=== PATIENT | male | born 1985 | race Caucasian/White ===

== ENCOUNTER 2019-03-07 14:56 | Day surgery (SDC) | payer BC ==
[2019-03-07] MEDS ORDERED: Sodium Chloride 0.9% 1,000 ML IV ONE ×2 (15:13→16:27)
[2019-03-07] MEDS ORDERED: Sodium Chloride 0.9% 10 ML Syringe FLUSH PRN (15:13)
[2019-03-07] MEDS ORDERED: Sodium Chloride 0.9% 2.5 ML Syringe FLUSH PRN (15:13)
[2019-03-07] MEDS ORDERED: Ondansetron 4 MG Tab.DIS PO ONE (15:18)
[2019-03-07] MEDS ORDERED: Morphine 10 MG/ML Syringe IM ONE (15:18)
--- NOTE | 2019-03-07 15:18 | EDM.PDOC ---
ED HPI GENERAL MEDICAL PROBLEM - General Chief Complaint: Abdominal Pain Stated Complaint: RIGHT ABD PAIN Time Seen by Provider: 03/07/19 15:12 Source of Information: Reports: Patient History Limitations: Reports: No Limitations - History of Present Illness INITIAL COMMENTS - FREE TEXT/NARRATIVE: History of present illness: []Patient presents with right lower quadrant pain that is intermittent, sharp and stabbing that began about an hour and a half ago. He was at a restaurant eating lunch with his family and ate about half a taco when it began. He denies any back pain or blood in his urine is no radiation of pain to his testicles. She has had no previous surgeries and has not had this pain in the past. Review of systems: As per history of present illness and below otherwise all systems reviewed and negative. Past medical history: As per history of present illness and as reviewed below otherwise noncontributory. Surgical history: As per history of present illness and as reviewed below otherwise noncontributory. Social history: No reported history of drug or alcohol abuse. Family history: As per history of present illness and as reviewed below otherwise noncontributory. Physical exam: General: Well developed, well nourished in NAD HEENT: Atraumatic, normocephalic, pupils reactive, negative for conjunctival pallor or scleral icterus, mucous membranes moist, throat clear, neck supple, nontender, trachea midline. Lungs: Clear to auscultation, breath sounds equal bilaterally, chest nontender. Heart: S1S2, regular, negative for clicks, rubs, or JVD. Abdomen: NABS, Soft, nondistended, tender in right lower quadrant without guarding or rebound. Negative for masses or hepatosplenomegaly. Negative for costovertebral tenderness. Pelvis: Stable nontender. Genitourinary: Deferred. Rectal: Deferred. Extremities: Atraumatic, negative for cords or calf pain. Neurovascular unremarkable. Neuro: Awake, alert, oriented. Cranial nerves II through XII unremarkable. Cerebellum unremarkable. Motor and sensory unremarkable throughout. Exam nonfocal. Skin:warm and dry Diagnostics: CBC, chemistry, lipase, UA, CT abdomen and pelvis showing early acute appendicitis Therapeutics: IV hydration, morphine, Zofran and Zosyn. ED Course: Stable Dr. Olivo consulted and will be taking this patient to the OR Impression: Acute appendicitis, uncontrolled hypertension Prescriptions: none Plan: Admit today surgery Definitive disposition and diagnosis as appropriate pending reevaluation and review of above. Right Lower Abdomen Pain Score (Numeric/FACES): 9 - Related Data Allergies Allergy/AdvReac Type Severity Reaction Status Date / Time No Known Allergies Allergy Verified 03/07/19 15:05 Home Meds: Home Meds Lisinopril 40 mg PO DAILY 03/07/19 [History] Pantoprazole Sodium [Protonix] 40 mg PO DAILY 03/07/19 [History] Past Medical History Cardiovascular History: Reports: Hypertension Gastrointestinal History: Reports: Gastritis - Infectious Disease History Infectious Disease History: Reports: None Social & Family History - Family History Family Medical History: Noncontributory - Tobacco Use Smoking Status *Q: Former Smoker Used Tobacco, but Quit: Yes Month/Year Tobacco Last Used: 2018 - Recreational Drug Use Recreational Drug Use: No ED ROS GENERAL - Review of Systems Review Of Systems: See Below ED EXAM, GI/ABD - Physical Exam Exam: See Below (See history of present illness) Course - Vital Signs Last Recorded V/S: Last Vital Signs Temp 98.4 F 03/07/19 15:05 Pulse 78 03/07/19 17:54 Resp 16 03/07/19 17:54 BP 174/113 H 03/07/19 17:54 Pulse Ox 96 03/07/19 17:54 - Orders/Labs/Meds Orders: Active Orders 24 hr Category Date Time Status NPO [Nothing Per Oral Diet] [DIET] Diet 03/07/19 Dinner Active HYDROmorphone [Dilaudid] Med 03/07/19 18:30 Active 1 mg IVPUSH ASDIRECTED PRN Lactated Ringers [Ringers, Lactated] 1,000 ml Med 03/07/19 17:41 Active IV .BOLUS Sodium Chloride 0.9% [Saline Flush] Med 03/07/19 15:13 Active 10 ml FLUSH ASDIRECTED PRN Sodium Chloride 0.9% [Saline Flush] Med 03/07/19 15:13 Active 2.5 ml FLUSH ASDIRECTED PRN Saline Lock Insert [OM.PC] Stat Oth 03/07/19 15:12 Ordered Medication Orders Hydromorphone HCl (Dilaudid) 1 mg IVPUSH ASDIRECTED PRN PRN Reason: Pain Last Admin: 03/07/19 18:38 Dose: 1 mg Lactated Ringer's (Ringers, Lactated) 1,000 mls @ 999 mls/hr IV .BOLUS ONE Stop: 03/07/19 18:41 Last Admin: 03/07/19 17:47 Dose: 999 mls/hr Sodium Chloride (Saline Flush) 10 ml FLUSH ASDIRECTED PRN PRN Reason: Keep Vein Open Sodium Chloride (Saline Flush) 2.5 ml FLUSH ASDIRECTED PRN PRN Reason: Keep Vein Open Labs: Laboratory Tests 03/07/19 03/07/19 03/07/19 Range/Units 15:15 15:25 15:25 WBC 13.11 H (4.0-11.0) K/uL RBC 5.14 (4.50-5.90) M/uL Hgb 15.3 (13.0-17.0) g/dL Hct 45.2 (38.0-50.0) % MCV 87.9 (80.0-98.0) fL MCH 29.8 (27.0-32.0) pg MCHC 33.8 (31.0-37.0) g/dL RDW Std Deviation 40.8 (28.0-62.0) fl RDW Coeff of Heidi 13 (11.0-15.0) % Plt Count 221 (150-400) K/uL MPV 10.10 (7.40-12.00) fL Neut % (Auto) 75.0 (48.0-80.0) % Lymph % (Auto) 17.7 (16.0-40.0) % [place] % (Auto) 5.8 (0.0-15.0) % Eos % (Auto) 1.3 (0.0-7.0) % Baso % (Auto) 0.2 (0.0-1.5) % Neut # (Auto) 9.8 H (1.4-5.7) K/uL Lymph # (Auto) 2.3 (0.6-2.4) K/uL [place] # (Auto) 0.8 (0.0-0.8) K/uL Eos # (Auto) 0.2 (0.0-0.7) K/uL Baso # (Auto) 0.0 (0.0-0.1) K/uL Nucleated RBC % 0.0 /100WBC Nucleated RBCs # 0 K/uL Sodium 139 (136-148) mmol/L Potassium 4.0 (3.5-5.1) mmol/L Chloride 104 (98-107) mmol/L Carbon Dioxide 27.1 (21.0-32.0) mmol/L BUN 14 (7.0-18.0) mg/dL Creatinine 1.2 (0.8-1.3) mg/dL Est Cr Clr Drug Dosing 96.18 mL/min Estimated GFR (MDRD) > 60.0 ml/min Glucose 126 H (74-106) mg/dL Calcium 9.2 (8.5-10.1) mg/dL Total Bilirubin 0.4 (0.2-1.0) mg/dL AST 15 (15-37) IU/L ALT 22 (14-63) IU/L Alkaline Phosphatase 146 H (46-116) U/L Total Protein 6.9 (6.4-8.2) g/dL Albumin 3.5 (3.4-5.0) g/dL Globulin 3.4 (2.6-4.0) g/dL Albumin/Globulin Ratio 1.0 (0.9-1.6) Lipase 118 (73-393) U/L Urine Color YELLOW Urine Appearance CLEAR Urine pH 5.5 (5.0-8.0) Ur Specific [place] >= 1.030 (1.001-1.035) Urine Protein NEGATIVE (NEGATIVE) mg/dL Urine Glucose (UA) NEGATIVE (NEGATIVE) mg/dL Urine Ketones NEGATIVE (NEGATIVE) mg/dL Urine Occult Blood TRACE-INTACT H (NEGATIVE) Urine Nitrite NEGATIVE (NEGATIVE) Urine Bilirubin NEGATIVE (NEGATIVE) Urine Urobilinogen 0.2 (<2.0) EU/dL Ur Leukocyte Esterase NEGATIVE (NEGATIVE) Urine RBC 0-2 (0-2/HPF) Urine WBC 0-2 (0-5/HPF) Ur Epithelial Cells OCCASIONAL (NONE-FEW) Urine Bacteria RARE (NEGATIVE) Urine Mucus LIGHT (NONE-MOD) Meds: Medications Generic Name Dose Route Start Last Admin Trade Name Freq PRN Reason Stop Dose Admin Hydromorphone HCl 1 mg 03/07/19 18:30 03/07/19 18:38 Dilaudid IVPUSH 1 mg ASDIRECTED PRN Administration Pain Lactated Ringer's 1,000 mls @ 999 mls/hr 03/07/19 17:41 03/07/19 17:47 Ringers, Lactated IV 03/07/19 18:41 999 mls/hr .BOLUS ONE Administration Sodium Chloride 10 ml 03/07/19 15:13 Saline Flush FLUSH ASDIRECTED PRN Keep Vein Open Sodium Chloride 2.5 ml 03/07/19 15:13 Saline Flush FLUSH ASDIRECTED PRN Keep Vein Open Discontinued Medications Generic Name Dose Route Start Last Admin Trade Name Freq PRN Reason Stop Dose Admin Hydromorphone HCl 1 mg 03/07/19 16:26 03/07/19 16:31 Dilaudid IVPUSH 03/07/19 16:27 1 mg ONETIME ONE Administration Hydromorphone HCl 0.5 mg 03/07/19 17:41 03/07/19 17:48 Dilaudid IVPUSH 03/07/19 17:42 0.5 mg ONETIME ONE Administration Sodium Chloride 1,000 mls @ 999 mls/hr 03/07/19 15:13 03/07/19 15:35 Normal Saline IV 03/07/19 16:13 999 mls/hr .Bolus ONE Administration Sodium Chloride 1,000 mls @ 999 mls/hr 03/07/19 16:27 03/07/19 17:53 Normal Saline IV 03/07/19 17:27 Not Given .Bolus ONE Piperacillin Sod/Tazobactam 50 mls @ 100 mls/hr 03/07/19 17:40 03/07/19 17:48 Sod 3.375 gm/ Sodium Chloride IV 03/07/19 18:09 100 mls/hr ONETIME ONE Administration Iopamidol 100 ml 03/07/19 17:45 03/07/19 17:46 Isovue-370 (76%) IVPUSH 03/07/19 17:46 100 ml ONETIME STA Administration Morphine Sulfate 6 mg 03/07/19 15:20 03/07/19 15:35 Morphine IVPUSH 03/07/19 15:21 6 mg ONETIME ONE Administration Ondansetron HCl 4 mg 03/07/19 15:20 03/07/19 15:35 Zofran IVPUSH 03/07/19 15:21 4 mg ONETIME ONE Administration Departure - Departure Time of Disposition: 18:40 Disposition: Still A Patient 30 Condition: Good Clinical Impression: Acute appendicitis Qualifiers: Acute appendicitis type: with localized peritonitis Appendicitis gangrene presence: without gangrene Appendicitis perforation presence: without perforation Appendicitis abscess presence: without abscess Qualified Code(s): K35.30 - Acute appendicitis with localized peritonitis, without perforation or gangrene - Discharge Information *PRESCRIPTION DRUG MONITORING PROGRAM REVIEWED*: No *COPY OF PRESCRIPTION DRUG MONITORING REPORT IN PATIENT KOLBY: No - My Orders Last 24 Hours: My Active Orders 03/07/19 15:12 Saline Lock Insert [OM.PC] Stat 03/07/19 15:13 Sodium Chloride 0.9% [Saline Flush] 10 ml FLUSH ASDIRECTED PRN Sodium Chloride 0.9% [Saline Flush] 2.5 ml FLUSH ASDIRECTED PRN 03/07/19 17:41 Lactated Ringers [Ringers, Lactated] 1,000 ml IV .BOLUS 03/07/19 Dinner NPO [Nothing Per Oral Diet] [DIET] - Assessment/Plan Last 24 Hours: My Active Orders 03/07/19 15:12 Saline Lock Insert [OM.PC] Stat 03/07/19 15:13 Sodium Chloride 0.9% [Saline Flush] 10 ml FLUSH ASDIRECTED PRN Sodium Chloride 0.9% [Saline Flush] 2.5 ml FLUSH ASDIRECTED PRN 03/07/19 17:41 Lactated Ringers [Ringers, Lactated] 1,000 ml IV .BOLUS 03/07/19 Dinner NPO [Nothing Per Oral Diet] [DIET]
[2019-03-07] MEDS ORDERED: Ondansetron 4 MG/2 ML SDV IVPUSH ONE ×2 (15:20→22:32)
[2019-03-07] MEDS ORDERED: Morphine 10 MG/ML Syringe IVPUSH ONE (15:20)
[2019-03-07 15:59] LABS: BLOOD UREA NITROGEN,BUN 14 mg/dL (7.0-18.0); CARBON DIOXIDE,CO2 27.1 mmol/L (21.0-32.0); CHLORIDE,CL 104 mmol/L (98-107); GLUCOSE RANDOM 126 mg/dL (74-106); LIPASE 118 U/L (73-393); SODIUM,NA 139 mmol/L (136-148)
[2019-03-07] MEDS ORDERED: HYDROmorphone 2 MG/ML Syringe IVPUSH ONE ×2 (16:26→17:41)
--- NOTE | 2019-03-07 17:21 | CT ---
INDICATION: Right lower quadrant abdomen pain TECHNIQUE: CT abdomen and pelvis acquired with 100 cc Isovue 370 IV contrast. COMPARISON: None. FINDINGS: Lower chest: Unremarkable. Liver: Unremarkable. Normal in size and attenuation. No masses. Gallbladder and bile ducts: Unremarkable. No stones or inflammation. No biliary dilatation. Pancreas: Unremarkable. No mass or inflammation. Spleen: Unremarkable. Normal in size. No masses. Adrenal glands: Unremarkable. No nodules. Kidneys: Unremarkable. No masses, stones, or hydronephrosis. GI tract: Unremarkable. Normal in caliber. No sign of mass or inflammation. Appendix is in the upper limits of normal in caliber, however subtle periappendiceal inflammation is suspected. Vasculature: Unremarkable. Mesenteric arteries are patent. Lymph nodes: No lymphadenopathy. Omentum/Peritoneum/Abdominal Wall: Unremarkable. No sign of mass or infiltration. No free air or significant free fluid. Pelvis: Unremarkable. Bones: Unremarkable for age. IMPRESSION: Early or very mild acute appendicitis is suspected but not definite. Remainder of the exam is unremarkable. Please note that all CT scans at this facility use dose modulation, iterative reconstruction, and/or weight-based dosing when appropriate to reduce radiation dose to as low as reasonably achievable. Dictated by Philip Araya MD @ Mar 07 2019 5:16PM Signed by Dr. Philip Araya @ Mar 07 2019 5:20PM
[2019-03-07] MEDS ORDERED: Piperacillin/Tazobactam 3.375 GM in Sodium Chloride 0.9% 50 ML IV ONE (17:40)
[2019-03-07] MEDS ORDERED: Lactated Ringers 1,000 ML IV ONE (17:41)
[2019-03-07] MEDS ORDERED: Iopamidol 755 Mg/ML 100 ML Bottle IVPUSH STA (17:45)
[2019-03-07] MEDS ORDERED: Propofol 200 MG/20 ML SDV ONE (18:37)
[2019-03-07] MEDS ORDERED: fentaNYL 250 MCG/5 ML SDV ONE (18:37)
[2019-03-07] MEDS ORDERED: Midazolam 1 MG/ML 2 ML SDV ONE (18:37)
[2019-03-07] MEDS ORDERED: Ondansetron 4 MG/2 ML SDV ONE (18:38)
[2019-03-07] MEDS ORDERED: Neostigmine Methylsulfate 1 MG/ML 5 ML Syringe ONE (18:38)
[2019-03-07] MEDS ORDERED: Lidocaine 2% 5 ML SDV ONE (18:38)
[2019-03-07] MEDS ORDERED: Glycopyrrolate 0.2 MG/ML SDV ONE (18:38)
[2019-03-07] MEDS ORDERED: Rocuronium 100 MG/10 ML Syringe ONE (18:38)
[2019-03-07] MEDS ORDERED: Ketorolac 30 MG/ML SDV ONE (18:38)
[2019-03-07] MEDS: HYDROmorphone 1 MG/ML Syringe IVPUSH PRN ×2 (18:38→19:22)
[2019-03-07] MEDS ORDERED: Lactated Ringers 1,000 ML IV SCH (18:45)
--- NOTE | 2019-03-07 18:52 | PCM.CONS ---
H&P History of Present Illness - General Date of Service: 03/07/19 Admit Problem/Dx: Patient is a 34-year-old gentleman who presented the emergency room earlier today. He was eating lunch about noon and suddenly had periumbilical pain that was quite severe. This gradually migrated to the right lower quadrant. He has felt warm, although doesn't think he's had a fever. He has been nauseated but no vomiting. Has not had anything to eat or drink since about 1:30. Nobody at home is ill. He states his appetite is poor. Source of Information: Patient, Family History Limitations: Reports: No Limitations - History of Present Illness Initial Comments - Free Text/Narative: See presenting complaint. Onset of Symptoms: Reports: Today Symptom Onset Date: 03/07/19 Symptom Onset Time: 13:00 Duration of Symptoms: Reports: Hour(s):, Constant, Getting Worse Location: Reports: Abdomen Quality: Reports: Pressure Severity: Moderate Improves with: Reports: Rest Worsens with: Reports: Movement Context: Reports: Sick Contact Associated Symptoms: Reports: Loss of Appetite, Malaise, Nausea/Vomiting. Denies: Confusion, Chest Pain, Fever/Chills, Headaches Right Lower Abdomen Pain Score (Numeric/FACES): 9 - Related Data Allergies/Adverse Reactions: Allergies Allergy/AdvReac Type Severity Reaction Status Date / Time No Known Allergies Allergy Verified 03/07/19 15:05 Home Medications: Home Meds Lisinopril 40 mg PO DAILY 03/07/19 [History] Pantoprazole Sodium [Protonix] 40 mg PO DAILY 03/07/19 [History] Past Medical History Cardiovascular History: Reports: Hypertension Gastrointestinal History: Reports: Gastritis - Infectious Disease History Infectious Disease History: Reports: None - Past Surgical History HEENT Surgical History: Reports: Tonsillectomy Respiratory Surgical History: Reports: Lung Biopsies (Thoracoscopically), Lung Resection Social & Family History - Family History Family Medical History: Noncontributory - Tobacco Use Smoking Status *Q: Former Smoker Used Tobacco, but Quit: Yes Month/Year Tobacco Last Used: 2018 - Recreational Drug Use Recreational Drug Use: No H&P Review of Systems - Review of Systems: Review Of Systems: See Below General: Reports: Decreased Appetite. Denies: Fever, Chills, Malaise, Weakness , Fatigue, Night Sweats HEENT: Reports: No Symptoms Pulmonary: Denies: Shortness of Breath, Wheezing Cardiovascular: Reports: Other (Patient is hypertensive.). Denies: Chest Pain, Palpitations, Dyspnea on Exertion Gastrointestinal: Reports: Abdominal Pain, Anorexia, Decreased Appetite, Flatus , Nausea. Denies: Black Stool, Bloody Stool, Constipation, Diarrhea, Difficulty Swallowing, Distension, Hematemesis, Hematochezia, Melena, Mucous in Stool, Vomiting Genitourinary: Reports: No Symptoms Musculoskeletal: Reports: No Symptoms Skin: Reports: No Symptoms Psychiatric: Denies: Confusion, Depression, Anxiety Neurological: Reports: No Symptoms Hematologic/Lymphatic: Reports: No Symptoms Immunologic: Reports: No Symptoms Exam - Exam Exam: See Below - Vital Signs Vital Signs: Last Vital Signs Temp 98.4 F 03/07/19 15:05 Pulse 78 03/07/19 17:54 Resp 16 03/07/19 17:54 BP 174/113 H 03/07/19 17:54 Pulse Ox 96 03/07/19 17:54 Weight: 248 lb - Exam Quality Assessment: No: Supplemental Oxygen, Urinary Catheter, Skin Breakdown General: Alert, Oriented, Cooperative, Mild Distress HEENT: Conjunctiva Clear, EACs Clear, Nares Patent, PERRLA Neck: Supple, Trachea Midline Lungs: Clear to Auscultation, Normal Respiratory Effort Cardiovascular: Regular Rate, Regular Rhythm GI/Abdominal Exam: Normal Bowel Sounds, Soft, No Distention, Rebound, Tender. No: Guarding, Rigid (Male) Exam: No Hernia Rectal (Males) Exam: Deferred Back Exam: Normal Inspection, Full Range of Motion Extremities: Normal Inspection, Normal Range of Motion Peripheral Pulses: 4+: Posterior Tibial (L), Posterior Tibial (R), Dorsalis Pedis (L), Dorsalis Pedis (R) Skin: Warm, Dry, Intact Neurological: Cranial Nerves Intact, Reflexes Equal Bilateral Psychiatric: Alert, Normal Affect, Normal Mood - Patient Data Lab Results Last 24 hrs: Laboratory Results - last 24 hr 03/07/19 03/07/19 03/07/19 Range/Units 15:15 15:25 15:25 WBC 13.11 H (4.0-11.0) K/uL RBC 5.14 (4.50-5.90) M/uL Hgb 15.3 (13.0-17.0) g/dL Hct 45.2 (38.0-50.0) % MCV 87.9 (80.0-98.0) fL MCH 29.8 (27.0-32.0) pg MCHC 33.8 (31.0-37.0) g/dL RDW Std Deviation 40.8 (28.0-62.0) fl RDW Coeff of Heidi 13 (11.0-15.0) % Plt Count 221 (150-400) K/uL MPV 10.10 (7.40-12.00) fL Neut % (Auto) 75.0 (48.0-80.0) % Lymph % (Auto) 17.7 (16.0-40.0) % [place] % (Auto) 5.8 (0.0-15.0) % Eos % (Auto) 1.3 (0.0-7.0) % Baso % (Auto) 0.2 (0.0-1.5) % Neut # (Auto) 9.8 H (1.4-5.7) K/uL Lymph # (Auto) 2.3 (0.6-2.4) K/uL [place] # (Auto) 0.8 (0.0-0.8) K/uL Eos # (Auto) 0.2 (0.0-0.7) K/uL Baso # (Auto) 0.0 (0.0-0.1) K/uL Nucleated RBC % 0.0 /100WBC Nucleated RBCs # 0 K/uL Sodium 139 (136-148) mmol/L Potassium 4.0 (3.5-5.1) mmol/L Chloride 104 (98-107) mmol/L Carbon Dioxide 27.1 (21.0-32.0) mmol/L BUN 14 (7.0-18.0) mg/dL Creatinine 1.2 (0.8-1.3) mg/dL Est Cr Clr Drug Dosing 96.18 mL/min Estimated GFR (MDRD) > 60.0 ml/min Glucose 126 H (74-106) mg/dL Calcium 9.2 (8.5-10.1) mg/dL Total Bilirubin 0.4 (0.2-1.0) mg/dL AST 15 (15-37) IU/L ALT 22 (14-63) IU/L Alkaline Phosphatase 146 H (46-116) U/L Total Protein 6.9 (6.4-8.2) g/dL Albumin 3.5 (3.4-5.0) g/dL Globulin 3.4 (2.6-4.0) g/dL Albumin/Globulin Ratio 1.0 (0.9-1.6) Lipase 118 (73-393) U/L Urine Color YELLOW Urine Appearance CLEAR Urine pH 5.5 (5.0-8.0) Ur Specific [place] >= 1.030 (1.001-1.035) Urine Protein NEGATIVE (NEGATIVE) mg/dL Urine Glucose (UA) NEGATIVE (NEGATIVE) mg/dL Urine Ketones NEGATIVE (NEGATIVE) mg/dL Urine Occult Blood TRACE-INTACT H (NEGATIVE) Urine Nitrite NEGATIVE (NEGATIVE) Urine Bilirubin NEGATIVE (NEGATIVE) Urine Urobilinogen 0.2 (<2.0) EU/dL Ur Leukocyte Esterase NEGATIVE (NEGATIVE) Urine RBC 0-2 (0-2/HPF) Urine WBC 0-2 (0-5/HPF) Ur Epithelial Cells OCCASIONAL (NONE-FEW) Urine Bacteria RARE (NEGATIVE) Urine Mucus LIGHT (NONE-MOD) Result Diagrams: 03/07/19 15:25 03/07/19 15:25 Consult PN Assessment/Plan (1) Acute appendicitis SNOMED Code(s): 83025934 Code(s): K35.80 - UNSPECIFIED ACUTE APPENDICITIS Current Visit: Yes Qualifiers: Acute appendicitis type: with localized peritonitis Appendicitis gangrene presence: without gangrene Appendicitis perforation presence: without perforation Appendicitis abscess presence: without abscess Qualified Code(s) : K35.30 - Acute appendicitis with localized peritonitis, without perforation or gangrene Problem List Initiated/Reviewed/Updated: Yes My Orders Last 24 Hours: My Active Orders 03/07/19 18:30 HYDROmorphone [Dilaudid] 1 mg IVPUSH ASDIRECTED PRN 03/07/19 18:45 Insert Urinary Catheter [OM.PC] Timed Oxygen Therapy [RC] ASDIRECTED RT Incentive Spirometry [RC] Q1HWA Skin Preparation [RC] .PREOP Urinary Catheter Assessment [RC] ASDIRECTED Urinary Catheter Assessment [RC] ASDIRECTED Vital Signs [RC] PER UNIT ROUTINE Lactated Ringers @ 125 MLS/HR(1000ml) Lactated Ringers [Ringers, Lactated] 1, 000 ml IV ASDIRECTED Antiembolic Hose [OM.PC] Routine Resuscitation Status Routine 03/07/19 18:46 Antiembolic Devices [RC] PER UNIT ROUTINE Urinary Catheter Assessment [RC] ASDIRECTED 03/07/19 Dinner Nothing Per Oral Diet [DIET] Plan: Laparoscopic appendectomy, possible open appendectomy. Both operative procedures, along with the risks, including, but not limited to, bleeding, infection, pneumonia, deep venous thrombosis, pulmonary emboli, myocardial infarction, and adjacent organ injury have been reviewed with the patient who voices understanding, offers no questions and agrees to proceed.
[2019-03-07] MEDS ORDERED: fentaNYL 50 MCG/ML SDV IVPUSH ONE (18:54)
--- NOTE | 2019-03-07 18:54 | PCM.PREANE ---
Preanesthetic Assessment - Anesthesia/Transfusion/Family Hx Anesthesia History: Prior Anesthesia Without Reaction Family History of Anesthesia Reaction: No Transfusion History: No Prior Transfusion(s) - Review of Systems General: No Symptoms Pulmonary: No Symptoms Cardiovascular: No Symptoms Gastrointestinal: No Symptoms Neurological: No Symptoms Other: Reports: None - Physical Assessment NPO Status Date: 03/07/19 NPO Status Time: 14:00 Vital Signs: Last Vital Signs Temp 36.9 C 03/07/19 15:05 Pulse 78 03/07/19 17:54 Resp 16 03/07/19 17:54 BP 174/113 H 03/07/19 17:54 Pulse Ox 96 03/07/19 17:54 Height: 1.85 m Weight: 112.491 kg ASA Class: 2E Mental Status: Alert & Oriented x3 Dentition: Reports: Normal Dentition ROM/Head Extension: Full - Lab Values: Laboratory Last Values WBC 13.11 K/uL (4.0-11.0) H 03/07/19 15:25 RBC 5.14 M/uL (4.50-5.90) 03/07/19 15:25 Hgb 15.3 g/dL (13.0-17.0) 03/07/19 15:25 Hct 45.2 % (38.0-50.0) 03/07/19 15:25 MCV 87.9 fL (80.0-98.0) 03/07/19 15:25 MCH 29.8 pg (27.0-32.0) 03/07/19 15:25 MCHC 33.8 g/dL (31.0-37.0) 03/07/19 15:25 RDW Std Deviation 40.8 fl (28.0-62.0) 03/07/19 15:25 RDW Coeff of Heidi 13 % (11.0-15.0) 03/07/19 15:25 Plt Count 221 K/uL (150-400) 03/07/19 15:25 MPV 10.10 fL (7.40-12.00) 03/07/19 15:25 Neut % (Auto) 75.0 % (48.0-80.0) 03/07/19 15:25 Lymph % (Auto) 17.7 % (16.0-40.0) 03/07/19 15:25 [place] % (Auto) 5.8 % (0.0-15.0) 03/07/19 15:25 Eos % (Auto) 1.3 % (0.0-7.0) 03/07/19 15:25 Baso % (Auto) 0.2 % (0.0-1.5) 03/07/19 15:25 Neut # (Auto) 9.8 K/uL (1.4-5.7) H 03/07/19 15:25 Lymph # (Auto) 2.3 K/uL (0.6-2.4) 03/07/19 15:25 [place] # (Auto) 0.8 K/uL (0.0-0.8) 03/07/19 15:25 Eos # (Auto) 0.2 K/uL (0.0-0.7) 03/07/19 15:25 Baso # (Auto) 0.0 K/uL (0.0-0.1) 03/07/19 15:25 Nucleated RBC % 0.0 /100WBC 03/07/19 15:25 Nucleated RBCs # 0 K/uL 03/07/19 15:25 Sodium 139 mmol/L (136-148) 03/07/19 15:25 Potassium 4.0 mmol/L (3.5-5.1) 03/07/19 15:25 Chloride 104 mmol/L (98-107) 03/07/19 15:25 Carbon Dioxide 27.1 mmol/L (21.0-32.0) 03/07/19 15:25 BUN 14 mg/dL (7.0-18.0) 03/07/19 15:25 Creatinine 1.2 mg/dL (0.8-1.3) 03/07/19 15:25 Est Cr Clr Drug Dosing 96.18 mL/min 03/07/19 15:25 Estimated GFR (MDRD) > 60.0 ml/min 03/07/19 15:25 Glucose 126 mg/dL (74-106) H 03/07/19 15:25 Calcium 9.2 mg/dL (8.5-10.1) 03/07/19 15:25 Total Bilirubin 0.4 mg/dL (0.2-1.0) 03/07/19 15:25 AST 15 IU/L (15-37) 03/07/19 15:25 ALT 22 IU/L (14-63) 03/07/19 15:25 Alkaline Phosphatase 146 U/L (46-116) H 03/07/19 15:25 Total Protein 6.9 g/dL (6.4-8.2) 03/07/19 15:25 Albumin 3.5 g/dL (3.4-5.0) 03/07/19 15:25 Globulin 3.4 g/dL (2.6-4.0) 03/07/19 15:25 Albumin/Globulin Ratio 1.0 (0.9-1.6) 03/07/19 15:25 Lipase 118 U/L (73-393) 03/07/19 15:25 Urine Color YELLOW 03/07/19 15:15 Urine Appearance CLEAR 03/07/19 15:15 Urine pH 5.5 (5.0-8.0) 03/07/19 15:15 Ur Specific [place] >= 1.030 (1.001-1.035) 03/07/19 15:15 Urine Protein NEGATIVE mg/dL (NEGATIVE) 03/07/19 15:15 Urine Glucose (UA) NEGATIVE mg/dL (NEGATIVE) 03/07/19 15:15 Urine Ketones NEGATIVE mg/dL (NEGATIVE) 03/07/19 15:15 Urine Occult Blood TRACE-INTACT (NEGATIVE) H 03/07/19 15:15 Urine Nitrite NEGATIVE (NEGATIVE) 03/07/19 15:15 Urine Bilirubin NEGATIVE (NEGATIVE) 03/07/19 15:15 Urine Urobilinogen 0.2 EU/dL (<2.0) 03/07/19 15:15 Ur Leukocyte Esterase NEGATIVE (NEGATIVE) 03/07/19 15:15 Urine RBC 0-2 (0-2/HPF) 03/07/19 15:15 Urine WBC 0-2 (0-5/HPF) 03/07/19 15:15 Ur Epithelial Cells OCCASIONAL (NONE-FEW) 03/07/19 15:15 Urine Bacteria RARE (NEGATIVE) 03/07/19 15:15 Urine Mucus LIGHT (NONE-MOD) 03/07/19 15:15 - Allergies Allergies/Adverse Reactions: Allergies Allergy/AdvReac Type Severity Reaction Status Date / Time No Known Allergies Allergy Verified 03/07/19 15:05 - Acknowledgements Anesthesia Type Planned: General Anesthesia Pt an Appropriate Candidate for the Planned Anesthesia: Yes Alternatives and Risks of Anesthesia Discussed w Pt/Guardian: Yes Pt/Guardian Understands and Agrees with Anesthesia Plan: Yes PreAnesthesia Questionnaire Cardiovascular History: Reports: Hypertension Gastrointestinal History: Reports: Gastritis - Infectious Disease History Infectious Disease History: Reports: None - Past Surgical History HEENT Surgical History: Reports: Tonsillectomy Respiratory Surgical History: Reports: Lung Biopsies (Thoracoscopically), Lung Resection - SUBSTANCE USE Smoking Status *Q: Former Smoker Recreational Drug Use History: No - HOME MEDS Home Medications: Home Meds Lisinopril 40 mg PO DAILY 03/07/19 [History] Pantoprazole Sodium [Protonix] 40 mg PO DAILY 03/07/19 [History] - CURRENT (IN HOUSE) MEDS Current Meds: Current Medications Hydromorphone HCl (Dilaudid) 1 mg IVPUSH ASDIRECTED PRN PRN Reason: Pain Last Admin: 03/07/19 18:38 Dose: 1 mg Lactated Ringer's (Ringers, Lactated) 1,000 mls @ 125 mls/hr IV ASDIRECTED SERAFIN Sodium Chloride (Saline Flush) 10 ml FLUSH ASDIRECTED PRN PRN Reason: Keep Vein Open Sodium Chloride (Saline Flush) 2.5 ml FLUSH ASDIRECTED PRN PRN Reason: Keep Vein Open Discontinued Medications Fentanyl (Sublimaze) Confirm Administered Dose 250 mcg .ROUTE .STK-MED ONE Stop: 03/07/19 18:38 Glycopyrrolate (Robinul) Confirm Administered Dose 0.8 mg .ROUTE .STK-MED ONE Stop: 03/07/19 18:39 Hydromorphone HCl (Dilaudid) 1 mg IVPUSH ONETIME ONE Stop: 03/07/19 16:27 Last Admin: 03/07/19 16:31 Dose: 1 mg Hydromorphone HCl (Dilaudid) 0.5 mg IVPUSH ONETIME ONE Stop: 03/07/19 17:42 Last Admin: 03/07/19 17:48 Dose: 0.5 mg Sodium Chloride (Normal Saline) 1,000 mls @ 999 mls/hr IV .Bolus ONE Stop: 03/07/19 16:13 Last Admin: 03/07/19 15:35 Dose: 999 mls/hr Sodium Chloride (Normal Saline) 1,000 mls @ 999 mls/hr IV .Bolus ONE Stop: 03/07/19 17:27 Last Admin: 03/07/19 17:53 Dose: Not Given Piperacillin Sod/Tazobactam (Sod 3.375 gm/ Sodium Chloride) 50 mls @ 100 mls/ hr IV ONETIME ONE Stop: 03/07/19 18:09 Last Admin: 03/07/19 17:48 Dose: 100 mls/hr Lactated Ringer's (Ringers, Lactated) 1,000 mls @ 999 mls/hr IV .BOLUS ONE Stop: 03/07/19 18:41 Last Admin: 03/07/19 17:47 Dose: 999 mls/hr Iopamidol (Isovue-370 (76%)) 100 ml IVPUSH ONETIME STA Stop: 03/07/19 17:46 Last Admin: 03/07/19 17:46 Dose: 100 ml Ketorolac Tromethamine (Toradol) Confirm Administered Dose 30 mg .ROUTE .STK- MED ONE Stop: 03/07/19 18:39 Lidocaine (Xylocaine-Mpf 2%) Confirm Administered Dose 5 ml .ROUTE .STK-MED ONE Stop: 03/07/19 18:39 Midazolam HCl (Versed 1 Mg/Ml) Confirm Administered Dose 2 mg .ROUTE .STK-MED ONE Stop: 03/07/19 18:38 Morphine Sulfate (Morphine) 6 mg IVPUSH ONETIME ONE Stop: 03/07/19 15:21 Last Admin: 03/07/19 15:35 Dose: 6 mg Neostigmine Methylsulfate (Neostigmine) Confirm Administered Dose 5 mg .ROUTE .STK-MED ONE Stop: 03/07/19 18:39 Ondansetron HCl (Zofran) 4 mg IVPUSH ONETIME ONE Stop: 03/07/19 15:21 Last Admin: 03/07/19 15:35 Dose: 4 mg Ondansetron HCl (Zofran) Confirm Administered Dose 4 mg .ROUTE .STK-MED ONE Stop: 03/07/19 18:39 Propofol (Diprivan 20 Ml) Confirm Administered Dose 200 mg .ROUTE .STK-MED ONE Stop: 03/07/19 18:38 Rocuronium [place] (Zemuron) Confirm Administered Dose 100 mg .ROUTE .STK-MED ONE Stop: 03/07/19 18:39 Succinylcholine Chloride (Succinylcholine Chloride) Confirm Administered Dose 200 mg .ROUTE .STK-MED ONE Stop: 03/07/19 18:39
[2019-03-07] MEDS ORDERED: Sugammadex Sodium 200 MG/2 ML VIAL ONE (19:14)
[2019-03-07] MEDS ORDERED: Bupivacaine 0.5% 10 ML SDV ONE (19:15)
[2019-03-07] MEDS ORDERED: HYDROmorphone 2 MG/ML Syringe ONE (19:15)
[2019-03-07] MEDS ORDERED: ceFAZolin 1 GM Vial ONE (19:15)
[2019-03-07] MEDS ORDERED: Morphine 10 MG/ML Syringe IVPUSH PRN (20:53)
[2019-03-07] MEDS ORDERED: fentaNYL 100 MCG/2 ML SDV ONE (20:55)
--- NOTE | 2019-03-07 20:55 | PCM.OPNOTE ---
- General Post-Op/Procedure Note Date of Surgery/Procedure: 03/07/19 Operative Procedure(s): Laparoscopic appendectomy Pre Op Diagnosis: Acute abdomen Post-Op Diagnosis: Acute appendicitis without perforation Anesthesia Technique: General ET Tube (ASA IIE) Primary Surgeon: Luis Miguel Olivo Fluid Replacement, Intraop: 1,500 Output, Urine Amount: 200 EBL in mLs: 10 Condition: Stable Free Text/Narrative:: DICTATION 064465 CPT CODE 47555
[2019-03-07] MEDS ORDERED: Acetaminophen 325 MG Tab PO PRN (20:56)
[2019-03-07] MEDS ORDERED: Ondansetron 4 MG/2 ML SDV IVPUSH PRN (20:56)
[2019-03-07] MEDS ORDERED: cefOXitin 1 GM in Premix Bag 1 BAG IV SCH (21:00)
[2019-03-07] MEDS ORDERED: Metoclopramide 10 MG/2 ML SDV ONE (21:07)
[2019-03-07] MEDS: Metoclopramide 10 MG/2 ML SDV IV SCH (21:08)
--- NOTE | 2019-03-07 21:16 | PCM.POSTAN ---
POST ANESTHESIA ASSESSMENT - MENTAL STATUS Mental Status: Alert - VITAL SIGNS Vital Signs: Last Vital Signs Temp 37 C 03/07/19 20:36 Pulse 61 03/07/19 21:11 Resp 10 L 03/07/19 21:11 BP 135/93 H 03/07/19 21:11 Pulse Ox 98 03/07/19 21:11 - RESPIRATORY Respiratory Status: Respiratory Rate WNL - CARDIOVASCULAR CV Status: Pulse Rate WNL - GASTROINTESTINAL GI Status: No Symptoms - POST OP HYDRATION Hydration Status: Adequate & Stable
--- NOTE | 2019-03-07 21:38 | OR ---
SURGEON: Luis Miguel Olivo M.D. DATE OF PROCEDURE: 03/07/2019 OPERATION PERFORMED: Laparoscopic appendectomy. PRIMARY SURGEON: Luis Miguel Olivo M.D. ANESTHESIA: General endotracheal. ASA CLASSIFICATION: IIE. PREOPERATIVE DIAGNOSIS: Acute abdomen. POSTOPERATIVE DIAGNOSIS: Acute appendicitis without perforation or abscess. INTRAOPERATIVE FLUID REPLACEMENT: 1500 mL of crystalloid. INTRAOPERATIVE URINE OUTPUT: 200 mL. ESTIMATED BLOOD LOSS: 10 mL. DESCRIPTION OF PROCEDURE: The patient was taken to the operating room and placed on the operating table in the supine position. A time-out was called for appropriate identification of the patient and procedure. Sequential compression boots were placed. Following satisfactory attainment of general endotracheal anesthesia, a Hassan catheter was placed in the patient's urinary bladder. The abdomen was prepped with DuraPrep solution and sterile drapes were applied. The skin just above the umbilicus was infiltrated with 0.5% Marcaine solution. A skin incision was made and deepened through the subcutaneous tissue obtaining hemostasis with the use of electrocautery. The Veress needle was introduced into the peritoneal cavity. Saline drop test was positive. Carbon dioxide pneumoperitoneum was established with a release at 13 cm of water. Once satisfactory pneumoperitoneum was established, a 5 mm camera and port were placed through the supraumbilical incision. Under camera vision, a 12 mm suprapubic port was placed. The skin was again infiltrated with 0.5% Marcaine solution. The skin incision was made and deepened into the subcutaneous tissue using electrocautery. Hemostasis was obtained with electrocautery. The 12 mm port was introduced under camera vision. Our attention was then turned to the left lower quadrant. Appropriate site for placement of a third port was identified, and again the skin infiltrated with 0.5% Marcaine solution. After the skin incision was made, a 5 mm port was placed through that incision. The appendix was grasped. The tip was inflamed, but there was no evidence of perforation or cloudy purulent fluid. The mesoappendix was taken down with the Harmonic scalpel. The appendix was doubly ligated at its base with 0 PDS Endoloops. The appendix was then transected with the Harmonic Scalpel and placed in the EndoCatch. The right lower quadrant was then irrigated with sterile saline solution. All fluid was aspirated. The stump of the appendix was well ligated. Again under camera vision, the 12 mm suprapubic port and EndoCatch containing appendix were removed without difficulty. The [address] quadrant port was removed under camera vision, and finally the supraumbilical camera and port were removed. Wounds were inspected for hemostasis and small bleeding sites were electrocoagulated. All incisions were closed in 2 layers, approximating the subcutaneous tissue with 3-0 Vicryl and the skin with subcuticular 4-0 Monocryl. All incisions were Steri-Stripped and dressed with sterile Tegaderm pads. Sponge, needle, and instrument counts were all correct. Hassan catheter was removed prior to emergence from anesthesia. Following emergence from anesthesia and extubation, the patient was taken to recovery room in stable condition. MELA YANG /[id number]
[2019-03-07] MEDS: Lactated Ringers 1,000 ML IV SCH (22:03)
[2019-03-07] MEDS ORDERED: Promethazine 25 MG/ML SDV IM PRN (22:38)
[2019-03-07] MEDS: cefOXitin 1 GM in Premix Bag 1 BAG IV SCH (22:55)
[2019-03-08] MEDS ORDERED: diphenhydrAMINE 25 MG Cap PO PRN (00:37)
[2019-03-08] MEDS: Acetaminophen/HYDROcodone 325-5 MG Tab PO PRN ×3 (00:52→10:38)
[2019-03-08] MEDS: Metoclopramide 10 MG/2 ML SDV IV SCH ×2 (03:35→08:48)
[2019-03-08] MEDS: cefOXitin 1 GM in Premix Bag 1 BAG IV SCH (05:32)
--- NOTE | 2019-03-08 06:59 | PCM48HPAN ---
Post Anesthesia Note - EVALUATION WITHIN 48HRS OF ANESTHETIC Vital Signs in Normal Range: Yes Patient Participated in Evaluation: Yes Respiratory Function Stable: Yes Airway Patent: Yes Cardiovascular Function Stable: Yes Hydration Status Stable: Yes Pain Control Satisfactory: Yes Nausea and Vomiting Control Satisfactory: Yes Mental Status Recovered: Yes Vital Signs: Last Vital Signs Temp 36.6 C 03/08/19 04:33 Pulse 58 L 03/08/19 04:33 Resp 18 03/08/19 04:33 BP 132/78 03/08/19 04:33 Pulse Ox 95 03/08/19 04:33
[2019-03-08] MEDS: Lactated Ringers 1,000 ML IV SCH (07:05)
--- NOTE | 2019-03-08 10:51 | PCM.SURGPN ---
- General Info Date of Service: 03/08/19 POD#: 1 Functional Status: Reports: Pain Controlled, Tolerating Diet, Ambulating, Urinating - Review of Systems General: Reports: Appetite. Denies: Fever, Weakness, Fatigue, Malaise, Chills HEENT: Reports: No Symptoms Pulmonary: Denies: Shortness of Breath Cardiovascular: Denies: Chest Pain Gastrointestinal: Reports: Abdominal Pain (incisional), Flatus. Denies: Decreased Appetite, Diarrhea, Nausea, Vomiting Genitourinary: Denies: Dysuria, Frequency, Burning, Pain, Urgency Musculoskeletal: Reports: No Symptoms Skin: Reports: No Symptoms Neurological: Reports: No Symptoms Psychiatric: Reports: No Symptoms - Patient Data Vitals - Most Recent: Last Vital Signs Temp 98.2 F 03/08/19 08:00 Pulse 61 03/08/19 08:00 Resp 16 03/08/19 08:00 BP 120/69 03/08/19 08:00 Pulse Ox 96 03/08/19 08:00 Weight - Most Recent: 253 lb I&O - Last 24 Hours: Intake & Output 03/07/19 03/08/19 03/08/19 19:59 03:59 11:59 Intake Total 3877 520 Output Total 400 470 Balance 3477 50 Lab Results Last 24 Hrs: Laboratory Results - last 24 hr 03/07/19 03/07/19 03/07/19 Range/Units 15:15 15:25 15:25 WBC 13.11 H (4.0-11.0) K/uL RBC 5.14 (4.50-5.90) M/uL Hgb 15.3 (13.0-17.0) g/dL Hct 45.2 (38.0-50.0) % MCV 87.9 (80.0-98.0) fL MCH 29.8 (27.0-32.0) pg MCHC 33.8 (31.0-37.0) g/dL RDW Std Deviation 40.8 (28.0-62.0) fl RDW Coeff of Heidi 13 (11.0-15.0) % Plt Count 221 (150-400) K/uL MPV 10.10 (7.40-12.00) fL Neut % (Auto) 75.0 (48.0-80.0) % Lymph % (Auto) 17.7 (16.0-40.0) % [place] % (Auto) 5.8 (0.0-15.0) % Eos % (Auto) 1.3 (0.0-7.0) % Baso % (Auto) 0.2 (0.0-1.5) % Neut # (Auto) 9.8 H (1.4-5.7) K/uL Lymph # (Auto) 2.3 (0.6-2.4) K/uL [place] # (Auto) 0.8 (0.0-0.8) K/uL Eos # (Auto) 0.2 (0.0-0.7) K/uL Baso # (Auto) 0.0 (0.0-0.1) K/uL Nucleated RBC % 0.0 /100WBC Nucleated RBCs # 0 K/uL Sodium 139 (136-148) mmol/L Potassium 4.0 (3.5-5.1) mmol/L Chloride 104 (98-107) mmol/L Carbon Dioxide 27.1 (21.0-32.0) mmol/L BUN 14 (7.0-18.0) mg/dL Creatinine 1.2 (0.8-1.3) mg/dL Est Cr Clr Drug Dosing 96.18 mL/min Estimated GFR (MDRD) > 60.0 ml/min Glucose 126 H (74-106) mg/dL Calcium 9.2 (8.5-10.1) mg/dL Total Bilirubin 0.4 (0.2-1.0) mg/dL AST 15 (15-37) IU/L ALT 22 (14-63) IU/L Alkaline Phosphatase 146 H (46-116) U/L Total Protein 6.9 (6.4-8.2) g/dL Albumin 3.5 (3.4-5.0) g/dL Globulin 3.4 (2.6-4.0) g/dL Albumin/Globulin Ratio 1.0 (0.9-1.6) Lipase 118 (73-393) U/L Urine Color YELLOW Urine Appearance CLEAR Urine pH 5.5 (5.0-8.0) Ur Specific [place] >= 1.030 (1.001-1.035) Urine Protein NEGATIVE (NEGATIVE) mg/dL Urine Glucose (UA) NEGATIVE (NEGATIVE) mg/dL Urine Ketones NEGATIVE (NEGATIVE) mg/dL Urine Occult Blood TRACE-INTACT H (NEGATIVE) Urine Nitrite NEGATIVE (NEGATIVE) Urine Bilirubin NEGATIVE (NEGATIVE) Urine Urobilinogen 0.2 (<2.0) EU/dL Ur Leukocyte Esterase NEGATIVE (NEGATIVE) Urine RBC 0-2 (0-2/HPF) Urine WBC 0-2 (0-5/HPF) Ur Epithelial Cells OCCASIONAL (NONE-FEW) Urine Bacteria RARE (NEGATIVE) Urine Mucus LIGHT (NONE-MOD) Med Orders - Current: Current Medications Acetaminophen (Tylenol) 325 mg PO Q4H PRN PRN Reason: Fever Greater Than 101 Hydrocodone Bitart/Acetaminophen ([place] 325-5 Mg) 1 - 2 tab PO Q4H PRN PRN Reason: Pain (moderate 4-6) Last Admin: 03/08/19 10:38 Dose: 2 tab Diphenhydramine HCl (Benadryl) 25 mg PO Q2H PRN PRN Reason: Itching Last Admin: 03/08/19 00:53 Dose: 25 mg Hydromorphone HCl (Dilaudid) 1 mg IVPUSH ASDIRECTED PRN PRN Reason: Pain Last Admin: 03/07/19 19:22 Dose: 1 mg Lactated Ringer's (Ringers, Lactated) 1,000 mls @ 125 mls/hr IV ASDIRECTED [facility] Last Admin: 03/08/19 07:05 Dose: 125 mls/hr Metoclopramide HCl (Reglan) 10 mg IV Q6H [facility] Last Admin: 03/08/19 08:48 Dose: 10 mg Morphine Sulfate (Morphine) 0 mg IVPUSH Q1H PRN PRN Reason: Pain (severe 7-10) Ondansetron HCl (Zofran) 4 mg IVPUSH Q6H PRN PRN Reason: Nausea/Vomiting Last Admin: 03/07/19 21:00 Dose: 4 mg Promethazine HCl (Phenergan) 25 mg IM Q6H PRN PRN Reason: Nausea/Vomiting Sodium Chloride (Saline Flush) 10 ml FLUSH ASDIRECTED PRN PRN Reason: Keep Vein Open Sodium Chloride (Saline Flush) 2.5 ml FLUSH ASDIRECTED PRN PRN Reason: Keep Vein Open Discontinued Medications Bupivacaine HCl (Sensorcaine-Mpf 0.5%) Confirm Administered Dose 10 ml .ROUTE .STK-MED ONE Stop: 03/07/19 19:16 Cefazolin Sodium (Ancef) Confirm Administered Dose 1 gm .ROUTE .STK-MED ONE Stop: 03/07/19 19:16 Fentanyl (Sublimaze) Confirm Administered Dose 250 mcg .ROUTE .STK-MED ONE Stop: 03/07/19 18:38 Fentanyl (Fentanyl) 50 mcg IVPUSH ONETIME ONE Stop: 03/07/19 18:55 Last Admin: 03/07/19 20:56 Dose: 50 mcg Fentanyl (Sublimaze) Confirm Administered Dose 100 mcg .ROUTE .STK-MED ONE Stop: 03/07/19 20:56 Last Admin: 03/07/19 22:34 Dose: Not Given Glycopyrrolate (Robinul) Confirm Administered Dose 0.8 mg .ROUTE .STK-MED ONE Stop: 03/07/19 18:39 Hydromorphone HCl (Dilaudid) 1 mg IVPUSH ONETIME ONE Stop: 03/07/19 16:27 Last Admin: 03/07/19 16:31 Dose: 1 mg Hydromorphone HCl (Dilaudid) 0.5 mg IVPUSH ONETIME ONE Stop: 03/07/19 17:42 Last Admin: 03/07/19 17:48 Dose: 0.5 mg Hydromorphone HCl (Dilaudid) Confirm Administered Dose 2 mg .ROUTE .STK-MED ONE Stop: 03/07/19 19:16 Sodium Chloride (Normal Saline) 1,000 mls @ 999 mls/hr IV .Bolus ONE Stop: 03/07/19 16:13 Last Admin: 03/07/19 15:35 Dose: 999 mls/hr Sodium Chloride (Normal Saline) 1,000 mls @ 999 mls/hr IV .Bolus ONE Stop: 03/07/19 17:27 Last Admin: 03/07/19 17:53 Dose: Not Given Piperacillin Sod/Tazobactam (Sod 3.375 gm/ Sodium Chloride) 50 mls @ 100 mls/ hr IV ONETIME ONE Stop: 03/07/19 18:09 Last Admin: 03/07/19 17:48 Dose: 100 mls/hr Lactated Ringer's (Ringers, Lactated) 1,000 mls @ 999 mls/hr IV .BOLUS ONE Stop: 03/07/19 18:41 Last Infusion: 03/07/19 17:49 Dose: 300 mls/hr Lactated Ringer's (Ringers, Lactated) 1,000 mls @ 125 mls/hr IV ASDIRECTED [facility] Cefoxitin Sodium 1 gm/ Premix 50 mls @ 100 mls/hr IV Q6H [facility] Stop: 03/08/19 03:29 Last Admin: 03/08/19 01:58 Dose: Not Given Cefoxitin Sodium 1 gm/ Premix 50 mls @ 100 mls/hr IV Q6H [facility] Stop: 03/08/19 05:29 Last Admin: 03/08/19 05:32 Dose: 100 mls/hr Iopamidol (Isovue-370 (76%)) 100 ml IVPUSH ONETIME STA Stop: 03/07/19 17:46 Last Admin: 03/07/19 17:46 Dose: 100 ml Ketorolac Tromethamine (Toradol) Confirm Administered Dose 30 mg .ROUTE .STK- MED ONE Stop: 03/07/19 18:39 Lidocaine (Xylocaine-Mpf 2%) Confirm Administered Dose 5 ml .ROUTE .STK-MED ONE Stop: 03/07/19 18:39 Metoclopramide HCl (Reglan) Confirm Administered Dose 10 mg .ROUTE .STK-MED ONE Stop: 03/07/19 21:08 Midazolam HCl (Versed 1 Mg/Ml) Confirm Administered Dose 2 mg .ROUTE .STK-MED ONE Stop: 03/07/19 18:38 Morphine Sulfate (Morphine) 6 mg IVPUSH ONETIME ONE Stop: 03/07/19 15:21 Last Admin: 03/07/19 15:35 Dose: 6 mg Neostigmine Methylsulfate (Neostigmine) Confirm Administered Dose 5 mg .ROUTE .STK-MED ONE Stop: 03/07/19 18:39 Ondansetron HCl (Zofran) 4 mg IVPUSH ONETIME ONE Stop: 03/07/19 15:21 Last Admin: 03/07/19 15:35 Dose: 4 mg Ondansetron HCl (Zofran) Confirm Administered Dose 4 mg .ROUTE .STK-MED ONE Stop: 03/07/19 18:39 Ondansetron HCl (Zofran) 4 mg IVPUSH ONETIME ONE Stop: 03/07/19 22:33 Last Admin: 03/07/19 22:52 Dose: 4 mg Propofol (Diprivan 20 Ml) Confirm Administered Dose 200 mg .ROUTE .STK-MED ONE Stop: 03/07/19 18:38 Rocuronium [place] (Zemuron) Confirm Administered Dose 100 mg .ROUTE .STK-MED ONE Stop: 03/07/19 18:39 Succinylcholine Chloride (Succinylcholine Chloride) Confirm Administered Dose 200 mg .ROUTE .STK-MED ONE Stop: 03/07/19 18:39 Sugammadex Sodium ([place]) Confirm Administered Dose 200 mg .ROUTE .STK-MED ONE Stop: 03/07/19 19:15 - Exam Wound/Incisions: Drainage (bloody drainage at umbilical site. Dressing changed. ) General: Alert, Oriented, Cooperative, No Acute Distress HEENT: Pupils Equal, Pupils Reactive Neck: Supple Lungs: Clear to Auscultation, Normal Respiratory Effort Cardiovascular: Regular Rate, Regular Rhythm GI/Abdominal Exam: Normal Bowel Sounds, Soft, No Mass Extremities: Normal Inspection Skin: Warm, Dry, Intact Neurological: No New Focal Deficit Psy/Mental Status: Alert, Normal Affect, Normal Mood - Problem List & Annotations (1) Acute appendicitis SNOMED Code(s): 30333126 Code(s): K35.80 - UNSPECIFIED ACUTE APPENDICITIS Status: Acute Current Visit: Yes Qualifiers: Acute appendicitis type: with localized peritonitis Appendicitis gangrene presence: without gangrene Appendicitis perforation presence: without perforation Appendicitis abscess presence: without abscess Qualified Code(s) : K35.30 - Acute appendicitis with localized peritonitis, without perforation or gangrene - Problem List Review Problem List Initiated/Reviewed/Updated: Yes - My Orders Last 24 Hours: Active Orders 24 hr Category Date Time Status Patient Status [ADT] Routine ADT 03/07/19 18:45 Active Antiembolic Devices [RC] PER UNIT ROUTINE Care 03/07/19 18:46 Active Insert Urinary Catheter [OM.PC] Timed Care 03/07/19 18:45 Ordered Oxygen Therapy [RC] ASDIRECTED Care 03/07/19 18:45 Active Oxygen Therapy [RC] PRN Care 03/07/19 20:53 Active Pulse Oximetry [RC] ASDIRECTED Care 03/07/19 20:53 Active RT Incentive Spirometry [RC] Q1HWA Care 03/07/19 18:45 Active [facility]centive [facility]rom[facility] [[facility]] [facility] Care 03/07/19 20:53 Active Ready for Discharge [RC] PER UNIT ROUTINE Care 03/08/19 10:47 Ordered Up ad Joan [RC] PER UNIT ROUTINE Care 03/07/19 20:53 Active Vital Signs [RC] PER UNIT ROUTINE Care 03/07/19 20:53 Active Vital Signs [RC] Q4H Care 03/07/19 18:45 Active Advance Diet Instructions [DIET] Diet 03/07/19 Dinner Active Regular Diet [DIET] Diet 03/08/19 Breakfast Active Acetaminophen [Tylenol] Med 03/07/19 20:56 Active 325 mg PO Q4H PRN Acetaminophen/HYDROcodone [[place] 325-5 MG] Med 03/07/19 20:53 Active 1 - 2 tab PO Q4H PRN HYDROmorphone [Dilaudid] Med 03/07/19 18:30 Active 1 mg IVPUSH ASDIRECTED PRN Lactated Ringers [Ringers, Lactated] 1,000 ml Med 03/07/19 21:00 Active IV ASDIRECTED Metoclopramide [Reglan] Med 03/07/19 21:00 Active 10 mg IV Q6H Morphine Med 03/07/19 20:53 Active See Dose Instructions IVPUSH Q1H PRN Ondansetron [Zofran] Med 03/07/19 20:56 Active 4 mg IVPUSH Q6H PRN Promethazine [Phenergan] Med 03/07/19 22:38 Active 25 mg IM Q6H PRN Sodium Chloride 0.9% [Saline Flush] Med 03/07/19 15:13 Active 10 ml FLUSH ASDIRECTED PRN Sodium Chloride 0.9% [Saline Flush] Med 03/07/19 15:13 Active 2.5 ml FLUSH ASDIRECTED PRN diphenhydrAMINE [Benadryl] Med 03/08/19 00:37 Active 25 mg PO Q2H PRN Antiembolic Hose [OM.PC] Routine Oth 03/07/19 18:45 Ordered Saline Lock Insert [OM.PC] Stat Oth 03/07/19 15:12 Ordered Resuscitation Status Routine Resus Stat 03/07/19 18:45 Ordered Medication Orders Acetaminophen (Tylenol) 325 mg PO Q4H PRN PRN Reason: Fever Greater Than 101 Hydrocodone Bitart/Acetaminophen ([place] 325-5 Mg) 1 - 2 tab PO Q4H PRN PRN Reason: Pain (moderate 4-6) Last Admin: 03/08/19 10:38 Dose: 2 tab Admin: 03/08/19 07:35 Dose: 2 tab Admin: 03/08/19 00:52 Dose: 2 tab Diphenhydramine HCl (Benadryl) 25 mg PO Q2H PRN PRN Reason: Itching Last Admin: 03/08/19 00:53 Dose: 25 mg Hydromorphone HCl (Dilaudid) 1 mg IVPUSH ASDIRECTED PRN PRN Reason: Pain Last Admin: 03/07/19 19:22 Dose: 1 mg Admin: 03/07/19 18:38 Dose: 1 mg Lactated Ringer's (Ringers, Lactated) 1,000 mls @ 125 mls/hr IV ASDIRECTED [facility] Last Admin: 03/08/19 07:05 Dose: 125 mls/hr Infusion: 03/08/19 06:03 Dose: 125 mls/hr Admin: 03/07/19 22:03 Dose: 125 mls/hr Metoclopramide HCl (Reglan) 10 mg IV Q6H [facility] Last Admin: 03/08/19 08:48 Dose: 10 mg Admin: 03/08/19 03:35 Dose: 10 mg Admin: 03/07/19 21:08 Dose: 10 mg Morphine Sulfate (Morphine) 0 mg IVPUSH Q1H PRN PRN Reason: Pain (severe 7-10) Ondansetron HCl (Zofran) 4 mg IVPUSH Q6H PRN PRN Reason: Nausea/Vomiting Last Admin: 03/07/19 21:00 Dose: 4 mg Promethazine HCl (Phenergan) 25 mg IM Q6H PRN PRN Reason: Nausea/Vomiting Sodium Chloride (Saline Flush) 10 ml FLUSH ASDIRECTED PRN PRN Reason: Keep Vein Open Sodium Chloride (Saline Flush) 2.5 ml FLUSH ASDIRECTED PRN PRN Reason: Keep Vein Open - Assessment Assessment (Free Text/Narrative):: Patient is hemodynamically stable. Abdomen is soft and nontender. Umbilical dressing changed. - Plan Plan (Free Text/Narrative):: Discharge. [place] 5325 1 po q6h prn pain Do not lift more than 25 lbs. for 6 weeks. Clinic 7-10 days.
== END 2019-03-08 11:40 | disposition home or self-care (01) ==
LOC: MW.ED 14:56 → MW.SDS 17:53 → MW.MS 18:50 → MW.SDS 03-08 11:40
PROVIDERS: ATTEND Surgery
DX: K35.80 Unspecified acute appendicitis (principal); I10 Essential (primary) hypertension; K29.70 Gastritis, unspecified, without bleeding; Z87.891 Personal history of nicotine dependence; Z79.899 Other long term (current) drug therapy
CPT/HCPCS: 36415; 44970; 74177; 80053; 81001; 83690; 85025; 96361; 96365; 96375; 96376; 99285; A9270; J0330; J0694; J1170; J1885; J2001; J2250; J2270; J2405; J2543; J2704; J2765; J3010; J3490; J7040; J7050; J7120; Q9967; 88304; J0690

== ENCOUNTER 2019-07-15 10:31 | Emergency (ER) | payer SELFPAY ==
[2019-07-15] MEDS ORDERED: Aspirin 81 MG Tab.Chew PO ONE (10:46)
[2019-07-15] MEDS ORDERED: Morphine 10 MG/ML Syringe IVPUSH ONE (10:47)
[2019-07-15] MEDS ORDERED: Nitroglycerin 0.4 MG Tab.SL SL ONE (11:00)
[2019-07-15] MEDS: Nitroglycerin 0.4 MG Tab.SL SL PRN ×3 (11:04→11:14)
[2019-07-15] MEDS ORDERED: Acetaminophen 325 MG Tab PO ONE (11:29)
[2019-07-15 11:33] LABS: BLOOD UREA NITROGEN,BUN 13 mg/dL (7.0-18.0); CARBON DIOXIDE,CO2 28.9 mmol/L (21.0-32.0); CHLORIDE,CL 101 mmol/L (98-107); GLUCOSE RANDOM 91 mg/dL (74-106); POTASSIUM,K 3.4 mmol/L (3.5-5.1); SODIUM,NA 138 mmol/L (136-148)
[2019-07-15] MEDS ORDERED: Nitroglycerin 2% Oint 1 GM UD Packet TOP ONE (11:35)
--- NOTE | 2019-07-15 11:59 | EDM.PDOC ---
ED HPI GENERAL MEDICAL PROBLEM - General Chief Complaint: Cardiovascular Problem Stated Complaint: HIGH BP Time Seen by Provider: 07/15/19 11:57 Source of Information: Reports: Patient History Limitations: Reports: No Limitations - History of Present Illness INITIAL COMMENTS - FREE TEXT/NARRATIVE: Patient is a 34-year-old male with a past medical history of high blood pressure , smoking, angina presenting with a chief complaint of chest tightness and elevated blood pressure. Patient has not been able to take his blood pressure medications for the past 2 weeks due to insurance issues. Patient states over the past 2 to 3 days has been feeling sad a increase in chest tightness on the left side of his chest. The symptoms are associated with headache, shortness of breath. Nothing makes his symptoms better or worse. Patient states he took his blood pressure medications this morning but did not feel any better so came into the emergency department. Patient denies any syncopal episodes, lower extremity swelling, recent travels. Patient reports extensive cardiac work-ups in the past and followed with primary clinician back in [place]. Patient states he has had cardiac cath and MRIs as well as stress test which have not demonstrated any findings other than questionable small myocardial infarction. Patient denies have any coronary artery disease. In addition to that documented in the HPI above, the additional ROS was obtained : Constitutional: Denies fevers or chills Eyes: Denies vision changes ENMT: Denies sore throat CV: Per HPI Resp: Per HPI GI: Denies vomiting or diarrhea : Denies painful urination MSK: Denies recent trauma Skin: Denies new rashes Neuro: Denies new numbness or tingling or weakness Endocrine: Denies unexpected weight loss Heme: Denies bleeding disorders I have reviewed the triage vital signs Const: Well nourished, well developed, appears stated age Eyes: PERRL, no conjunctival injection HENT: NCAT, Neck supple without meningismus CV: RRR, Warm, well-perfused extremities RESP: CTAB, Unlabored respiratory effort GI: soft, non-tender, non-distended, no masses MSK: No gross deformities appreciated Skin: Warm, dry. No rashes Neuro: Alert, rug setter velvet II-XII grossly intact. Sensation and motor function of extremities grossly intact. Psych: Appropriate mood and affect Assessment and plan: Patient is a 34-year-old male with presentation of chest tightness. Patient has extensive cardiovascular family history as well as risk factors including hypertension and smoking. Patient has EKG which demonstrates ST changes in the inferior lateral leads. There is no evidence of acute STEMI. Serial EKGs were performed which did not demonstrate any changes. In addition, serial troponins were also negative. Patient given nitro with improvement of blood pressure as well as resolution of chest discomfort. Patient had no other lab abnormalities. Patient has a heart score of 5. Patient is PERC negative. Patient was recommended for observation stay in the hospital however he did not wish to stay due to family issues at home. Patient will sign out against my medical advice. Patient counseled on risks and benefits. Risks include worsening of symptoms, permanent disability, , myocardial infarction, heart failure. Patient understands these risks and states he will return to the emergency department if anything changes. All questions were addressed and answered. chest Pain Score (Numeric/FACES): 9 - Related Data Allergies Allergy/AdvReac Type Severity Reaction Status Date / Time No Known Allergies Allergy Verified 07/15/19 10:37 Home Meds: Home Meds Lisinopril 40 mg PO BEDTIME 03/07/19 [History] Pantoprazole Sodium [Protonix] 40 mg PO BEDTIME 03/07/19 [History] Acetaminophen/HYDROcodone [[place] 325-5 MG] 1 tab PO Q6H PRN 4 Days #15 tablet [Rx] Past Medical History Cardiovascular History: Reports: Hypertension Respiratory History: Reports: COPD Gastrointestinal History: Reports: Gastritis, GERD Psychiatric History: Reports: Anxiety - Infectious Disease History Infectious Disease History: Reports: Chicken Pox - Past Surgical History HEENT Surgical History: Reports: Tonsillectomy Respiratory Surgical History: Reports: Lung Biopsies, Lung Resection Social & Family History - Family History Family Medical History: Noncontributory - Tobacco Use Smoking Status *Q: Current Every Day Smoker Years of Tobacco use: 20 Packs/Tins Daily: 2 - Caffeine Use Caffeine Use: Reports: Coffee, Energy Drinks, Soda, Tea ED ROS GENERAL - Review of Systems Review Of Systems: See Below ED EXAM, GENERAL - Physical Exam Exam: See Below Course - Vital Signs Last Recorded V/S: Last Vital Signs Temp 36.1 C 07/15/19 10:35 Pulse 79 07/15/19 12:39 Resp 18 07/15/19 12:39 BP 150/100 H 07/15/19 12:39 Pulse Ox 96 07/15/19 12:39 - Orders/Labs/Meds Orders: Active Orders 24 hr Category Date Time Status EKG 12 Lead [EKG Documentation Completion] [] STAT Care 07/15/19 10:50 Active EKG 12 Lead [EKG Documentation Completion] [RC] STAT Care 07/15/19 10:51 Active Labs: Laboratory Tests 07/15/19 07/15/19 07/15/19 Range/Units 10:35 10:35 10:35 WBC 14.34 H (4.0-11.0) K/uL RBC 5.56 (4.50-5.90) M/uL Hgb 17.3 H (13.0-17.0) g/dL Hct 48.0 (38.0-50.0) % MCV 86.3 (80.0-98.0) fL MCH 31.1 (27.0-32.0) pg MCHC 36.0 (31.0-37.0) g/dL RDW Std Deviation 42.2 (28.0-62.0) fl RDW Coeff of Heidi 13 (11.0-15.0) % Plt Count 243 (150-400) K/uL MPV 10.20 (7.40-12.00) fL Neut % (Auto) 69.7 (48.0-80.0) % Lymph % (Auto) 23.6 (16.0-40.0) % [place] % (Auto) 5.7 (0.0-15.0) % Eos % (Auto) 0.7 (0.0-7.0) % Baso % (Auto) 0.3 (0.0-1.5) % Neut # (Auto) 10.0 H (1.4-5.7) K/uL Lymph # (Auto) 3.4 H (0.6-2.4) K/uL [place] # (Auto) 0.8 (0.0-0.8) K/uL Eos # (Auto) 0.1 (0.0-0.7) K/uL Baso # (Auto) 0.0 (0.0-0.1) K/uL Nucleated RBC % 0.0 /100WBC Nucleated RBCs # 0 K/uL INR 0.96 Sodium 138 (136-148) mmol/L Potassium 3.4 L (3.5-5.1) mmol/L Chloride 101 (98-107) mmol/L Carbon Dioxide 28.9 (21.0-32.0) mmol/L BUN 13 (7.0-18.0) mg/dL Creatinine 1.1 (0.8-1.3) mg/dL Est Cr Clr Drug Dosing 104.92 mL/min Estimated GFR (MDRD) > 60.0 ml/min Glucose 91 (74-106) mg/dL Calcium 9.8 (8.5-10.1) mg/dL Total Bilirubin 0.6 (0.2-1.0) mg/dL AST 23 (15-37) IU/L ALT 37 (14-63) IU/L Alkaline Phosphatase 171 H (46-116) U/L Troponin I < 0.050 (0.000-0.056) ng/mL B-Natriuretic Peptide (<100) PG/ML Total Protein 8.6 H (6.4-8.2) g/dL Albumin 4.3 (3.4-5.0) g/dL Globulin 4.3 H (2.6-4.0) g/dL Albumin/Globulin Ratio 1.0 (0.9-1.6) 07/15/19 07/15/19 Range/Units 10:35 12:47 WBC (4.0-11.0) K/uL RBC (4.50-5.90) M/uL Hgb (13.0-17.0) g/dL Hct (38.0-50.0) % MCV (80.0-98.0) fL MCH (27.0-32.0) pg MCHC (31.0-37.0) g/dL RDW Std Deviation (28.0-62.0) fl RDW Coeff of Heidi (11.0-15.0) % Plt Count (150-400) K/uL MPV (7.40-12.00) fL Neut % (Auto) (48.0-80.0) % Lymph % (Auto) (16.0-40.0) % [place] % (Auto) (0.0-15.0) % Eos % (Auto) (0.0-7.0) % Baso % (Auto) (0.0-1.5) % Neut # (Auto) (1.4-5.7) K/uL Lymph # (Auto) (0.6-2.4) K/uL [place] # (Auto) (0.0-0.8) K/uL Eos # (Auto) (0.0-0.7) K/uL Baso # (Auto) (0.0-0.1) K/uL Nucleated RBC % /100WBC Nucleated RBCs # K/uL INR Sodium (136-148) mmol/L Potassium (3.5-5.1) mmol/L Chloride (98-107) mmol/L Carbon Dioxide (21.0-32.0) mmol/L BUN (7.0-18.0) mg/dL Creatinine (0.8-1.3) mg/dL Est Cr Clr Drug Dosing mL/min Estimated GFR (MDRD) ml/min Glucose (74-106) mg/dL Calcium (8.5-10.1) mg/dL Total Bilirubin (0.2-1.0) mg/dL AST (15-37) IU/L ALT (14-63) IU/L Alkaline Phosphatase (46-116) U/L Troponin I < 0.050 (0.000-0.056) ng/mL B-Natriuretic Peptide 17 (<100) PG/ML Total Protein (6.4-8.2) g/dL Albumin (3.4-5.0) g/dL Globulin (2.6-4.0) g/dL Albumin/Globulin Ratio (0.9-1.6) Meds: Medications Discontinued Medications Generic Name Dose Route Start Last Admin Trade Name Freq PRN Reason Stop Dose Admin Acetaminophen 650 mg 07/15/19 11:29 07/15/19 11:42 Tylenol PO 07/15/19 11:30 650 mg NOW ONE Administration Aspirin 324 mg 07/15/19 10:46 07/15/19 10:52 Aspirin PO 07/15/19 10:47 324 mg ONETIME ONE Administration Metoclopramide HCl 10 mg 07/15/19 12:25 07/15/19 12:38 Reglan IVPUSH 07/15/19 12:26 10 mg ONETIME ONE Administration Morphine Sulfate 8 mg 07/15/19 10:47 07/15/19 10:53 Morphine IVPUSH 07/15/19 10:48 8 mg ONETIME ONE Administration Morphine Sulfate 4 mg 07/15/19 13:23 07/15/19 13:37 Morphine IVPUSH 07/15/19 13:24 4 mg ONETIME ONE Administration Nitroglycerin 0.4 mg 07/15/19 11:00 07/15/19 11:05 Nitrostat SL 07/15/19 11:01 Not Given ONETIME ONE Nitroglycerin 0.4 mg 07/15/19 11:03 07/15/19 11:14 Nitrostat SL 0.4 mg Q5M PRN Administration Chest Pain Nitroglycerin 1 gm 07/15/19 11:35 07/15/19 11:42 Nitro-Bid 2% TOP 07/15/19 11:36 1 gm ONETIME ONE Administration Departure - Departure Time of Disposition: 13:57 Disposition: Against Medical Advice 07 Clinical Impression: Chest pain Instructions: Nonspecific Chest Pain, [id number] Referrals: PCP,None [Primary Care Provider] - Forms: ED Department Discharge Additional Instructions: The following information is given to patients seen in the emergency department who are being discharged to home. This information is to outline your options for follow-up care. We provide all patients seen in our emergency department with a follow-up referral. The need for follow-up, as well as the timing and circumstances, are variable depending upon the specifics of your emergency department visit. If you don't have a primary care physician on staff, we will provide you with a referral. We always advise you to contact your personal physician following an emergency department visit to inform them of the circumstance of the visit and for follow-up with them and/or the need for any referrals to a consulting specialist. The emergency department will also refer you to a specialist when appropriate. This referral assures that you have the opportunity for follow-up care with a specialist. All of these measure are taken in an effort to provide you with optimal care, which includes your follow-up. Under all circumstances we always encourage you to contact your private physician who remains a resource for coordinating your care. When calling for follow-up care, please make the office aware that this follow-up is from your recent emergency room visit. If for any reason you are refused follow-up, please contact the Emergency Department at and asked to speak to the emergency department charge nurse. Please return to the emergency department soon as possible for repeat evaluation of chest pain and for further testing. Sepsis Event Note - Evaluation Sepsis Screening Result: No Definite Risk - Focused Exam Vital Signs: Vital Signs Temp Pulse Resp BP BP Pulse Ox 07/15/19 12:39 79 18 150/100 H 96 07/15/19 11:14 168/104 H 07/15/19 11:10 168/118 H 07/15/19 11:04 167/114 H 07/15/19 11:02 78 20 163/119 H 98 07/15/19 10:35 36.1 C 90 16 191/128 H 95 Date Exam was Performed: 07/15/19 Time Exam was Performed: 13:54 - My Orders Last 24 Hours: My Active Orders 07/15/19 10:50 EKG 12 Lead [EKG Documentation Completion] [RC] STAT 07/15/19 10:51 EKG 12 Lead [EKG Documentation Completion] [RC] STAT - Assessment/Plan Last 24 Hours: My Active Orders 07/15/19 10:50 EKG 12 Lead [EKG Documentation Completion] [RC] STAT 07/15/19 10:51 EKG 12 Lead [EKG Documentation Completion] [RC] STAT
[2019-07-15] MEDS ORDERED: Metoclopramide 10 MG/2 ML SDV IVPUSH ONE (12:25)
--- NOTE | 2019-07-15 12:53 | CR ---
Chest: Portable view of the chest was obtained. Comparison: No prior chest x-ray. Heart size and mediastinum are normal. Lungs are clear with no acute parenchymal change. Bony structures are grossly intact. Impression: 1. Nothing acute is seen on portable chest x-ray. Diagnostic code #1 This report was dictated in [place] Standard Time
[2019-07-15] MEDS ORDERED: Morphine 4 MG/ML Syringe IVPUSH ONE (13:23)
== END 2019-07-15 14:09 | disposition left against medical advice (07) ==
LOC: MW.ED 10:31
DX: R07.89 Other chest pain (principal); I10 Essential (primary) hypertension; K21.9 Gastro-esophageal reflux disease without esophagitis; F17.210 Nicotine dependence, cigarettes, uncomplicated
CPT/HCPCS: 36415; 71045; 80053; 83880; 84484; 85025; 85610; 93005; 96374; 96375; 96376; 99285; A9270; J2270; J2765; 99283